=== PATIENT | female | born 1970 | race Caucasian/White ===

== ENCOUNTER 2018-05-02 16:35 | Emergency (ER) | payer SELFPAY ==
[~2018-05-02] VITALS: Ht 162.6 cm; Wt 74.8 kg
[2018-05-02] MEDS ORDERED: DIPHTH,PERTUSS(ACELL),TET TOX 0.5 ML DISP.SYRIN. VAX IM ONE (17:30)
[2018-05-02] MEDS ORDERED: KETOROLAC 60 MG/2 ML INJ. IM ONE (17:30)
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
[2018-05-02] MEDS ORDERED: HYDROcodone/APAP 5/325MG 1 TAB TABLET PO ONE (19:00)
[2018-05-02 19:53] VITALS: BP 149/97
[2018-05-02] MEDS ORDERED: IBUP-1060 PO (20:12)
[2018-05-02] MEDS ORDERED: HYDR-3164 PO (20:12)
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
--- NOTE | 2018-05-03 05:09 | EKG ---
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 Electronically Signed On 05-03-2018 9:49:29 BUSINESS SUPPORT SPECIALIST by Daryl Benavidez
--- NOTE | 2018-05-11 10:04 | EKG ---
Signed PATIENT: JEAN-PAUL SIMPSON ACCOUNT: [id number] : 1970 LOCATION: ER AGE: 48 SEX: F EXAM PROCEDURE: 12 Lead EKG STATUS: DEP ER ORD. 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 Electronically Signed On 05-03-2018 9:49:29 REVERBERATORY FURNACE SUPERVISOR by Daryl Benavidez DICTATED and SIGNED BY: DARYL BENAVIDEZ MD DATE: 05/02/18 1644 [facility]
== END 2018-05-02 20:18 | disposition home or self-care (01) ==
LOC: ER 16:35
DX: S02.2XXA Fracture of nasal bones, initial encounter for closed fracture (principal); S01.112A Laceration without foreign body of left eyelid and periocular area, initial encounter; S20.02XA Contusion of left breast, initial encounter; V43.63XA Car passenger injured in collision with pick-up truck in traffic accident, initial encounter; Y93.89 Activity, other specified; Y92.488 Other paved roadways as the place of occurrence of the external cause; Y99.8 Other external cause status
CPT/HCPCS: 70450; 70486; 71101; 72125; 90471; 90715; 93005; 96372; 99284; J1885